=== PATIENT | female | born 1940 ===

== ENCOUNTER 2018-11-28 07:35 | Day surgery (SDC) | payer OTHER | END 2018-11-28 12:05 | disposition home or self-care (01) | LOC: AMB-ENDOS 07:35 → EDBD 07:45 → AMB-ENDOS 12:05 | DX: D12.3 Benign neoplasm of transverse colon (principal); K62.1 Rectal polyp; K64.8 Other hemorrhoids ==

== ENCOUNTER 2020-06-24 07:05 | Day surgery (SDC) | payer OTHER | END 2020-06-24 11:30 | disposition home or self-care (01) | LOC: AMB-ENDOS 07:05 | PROVIDERS: ATTEND Colon & Rectal Surgery | DX: K62.1 Rectal polyp (principal); K63.5 Polyp of colon; K64.8 Other hemorrhoids; Z12.11 Encounter for screening for malignant neoplasm of colon ==